=== PATIENT | male | born 1935 | race Caucasian/White ===

== ENCOUNTER 2021-04-03 17:58 | Emergency (ER) | payer OTHER ==
[2021-04-03 18:26] VITALS: BP 107/67; PULSE 79; TEMP 97.3; BMI 30.1
[2021-04-03 19:07] LABS: EOS % 1.8 % (0-4.5); HEMATOCRIT 35.5 % (35.4-49); HEMOGLOBIN 11.9 GM/dL (11.7-16.9); LYMPH % 27.1 % (8-40); MCH 28.7 pg (25.7-33.7); MCHC 33.5 g/dl (32.0-35.9); MEAN CELL VOLUME 85.5 fl (80-96); MEAN PLT VOLUME 7.9 fl (7.5-11.1); MONO % 4.9 % (3.8-10.2); NEUT % 65.2 % (42.8-82.8); PLATELET COUNT 318 10^3/uL (134-434); RBC 4.15 M/mm3 (4.00-5.60); WHITE BLOOD COUNT 8.9 K/mm3 (4.0-10.0)
[2021-04-03 19:12] LABS: INR 1.61 (0.83-1.09); PROTHROMBIN TIME (PATIENT) 19.2 SEC (9.7-13.0)
[2021-04-03 19:14] LABS: ACTIVATED PTT 32.7 SECONDS (25.2-36.5)
[2021-04-03 19:23] LABS: CALCIUM 8.1 mg/dL (8.5-10.1)
[2021-04-03 19:24] LABS: ALBUMIN 2.9 g/dl (3.4-5.0); BLOOD UREA NITROGEN 50.5 mg/dL (7-18)
[2021-04-03 19:28] LABS: BILIRUBIN,TOTAL 0.5 mg/dL (0.2-1); TOT PROT 7.2 g/dl (6.4-8.2)
[2021-04-03 19:35] LABS: CREATININE 1.8 mg/dL (0.55-1.3)
[2021-04-03] MEDS ORDERED: SODIUM CHLORIDE 0.9% 500 ML INFUS.BAG IV ONE (20:56)
[2021-04-03] MEDS ORDERED: POTASSIUM CHLORIDE TABS 20 MEQ TABLET.ER (FP) PO ONE ×2 (20:57→21:01)
== END 2021-04-03 21:43 | disposition home or self-care (01) ==
LOC: JER 17:58
DX: I48.91 Unspecified atrial fibrillation (principal); N18.9 Chronic kidney disease, unspecified; E87.6 Hypokalemia
CPT/HCPCS: 36415; 70450-TC; 72125-TC; 80053; 85025; 85610; 85730; 93005; 93010; 99285-25